=== PATIENT | male | born 1940 | race Caucasian/White ===

== ENCOUNTER 2024-11-17 09:44 | Emergency (ER) | payer MEDICARE, SELFPAY ==
[2024-11-17 09:48] VITALS: BP 159/69
[2024-11-17 11:32] VITALS: BMI 27.4
[2024-11-17 11:37] VITALS: BP 129/69
[2024-11-17 11:45] LABS: Hematocrit 43.1 % (39.0-52.0); Hemoglobin 13.6 g/dL (13.0-18.0); Mean Corp Hgb Conc. 31.6 g/dL (33.0-37.0); Mean Corpuscular Volume 97.7 fL (80.0-94.0); Nucleated Red Blood Cells % 0 % (-); Platelet Count 289 10^3/uL (130-400); Red Cell Dist. Width 18.0 % (11.5-14.5)
[2024-11-17 12:00] VITALS: BP 137/52
[2024-11-17 12:02] LABS: ALT (SGPT) 46 U/L (0-50); AST (SGOT) 40 U/L (17-59); Albumin 4.0 g/dl (3.5-5.0); Alkaline Phosphatase 97 U/L (38-126); Blood Urea Nitrogen 27 mg/dl (9-20); Calcium 9.3 mg/dl (8.4-10.2); Carbon Dioxide 30 mmol/L (22-30); Chloride 107 mmol/L (98-107); Estimated Creatinine Clearance 68 ml/min; Glucose 99 mg/dl (70-99); Lipase 50 U/L (23-300); Potassium 4.7 mmol/L (3.5-5.1); Sodium 139 mmol/L (135-145); Total Protein 6.6 g/dl (6.3-8.2); eGFR > 60.00
[2024-11-17] MEDS: DILAUDID 0.25 MG IV (12:06)
[2024-11-17] MEDS: BENADRYL 50 MG IV (12:07)
[2024-11-17] MEDS: SOLU-CORTEF 200 MG IV (12:08)
--- NOTE | 2024-11-17 12:12 | ED.GENMED ---
History of Present Illness
General
Chief Complaint: Abdominal Symptoms
Source: patient
Exam Limitations: none
Time Seen by Provider: 11/17/24 11:10
Nursing documentation reviewed up to this point in time: agreed with
History of Present Illness
History of Present Illness:
see MDM
Past History
Past History
ED Past Medical History: GERD, HTN, Other (AF) and Other (gastroparesis)
ED Past Surgical History: Cholecystectomy
Social History
Tobacco: Non-smoker
Review of Systems
Review of Systems
Allergies reviewed?: Yes
All Other Systems: Not applicable
Phy Exam
Physical Exam
Physical Exam:
See MDM
Course
Orders/Labs/Results
Orders:
Orders
11/17/24 11:31
CBC/With Diff [Complete Blood Count/With Diff] Urgent
11/17/24 11:32
CMP [Comprehensive Metabolic Panel] Urgent
Lipase Urgent
11/17/24 11:55
CT Abd/Pel (IV only)-[facility] only Urgent
Comment:
Reason For Exam: R sided abd pain x 1 year; gastroparesis
11/17/24 11:56
Diphenhydramine [Benadryl] 50 mg IV NOW STA
HYDROmorphone [Dilaudid] 0.25 mg IV NOW STA
Hydrocortisone Sod Succinate [Solu-Cortef] 200 mg IV NOW STA
11/17/24 12:05
Lactic Acid Urgent
11/17/24 14:49
0.9% Sodium Chloride 500 ml [Nss] 500 ml IV BOLUS
11/17/24 15:49
Urinalysis Reflex To Culture Urgent
Date Specimen was Collected: 11/17/24
Time Specimen was Collected: 15:48
Urine Microscopic Reflex Cult Urgent
Abnormal Lab Results
11/17/24 11/17/24 11/17/24
11:31 11:32 15:49
RBC 4.41 L 10^6/uL
(4.70-6.10)
MCV 97.7 H fL
(80.0-94.0)
MCHC 31.6 L g/dL
(33.0-37.0)
RDW 18.0 H %
(11.5-14.5)
MPV 11.4 H fL
(7.4-10.4)
Abs Immat Gran (auto) 0.1 H 10^3/uL
(0-0.05)
Absolute Lymphs (auto) 1.0 L 10^3/uL
(1.2-3.4)
Immature Gran % 1.4 H %
(0-0.5)
Lymphocytes % 15.7 L %
(20.5-51.1)
BUN 27 H mg/dl
(9-20)
Total Bilirubin 1.4 H mg/dl
(0.2-1.3)
Ur Occult Blood Reflex 1+ A
(Negative)
Urine RBC 3-6 A /HPF
(0-2)
Urine Bacteria (Reflex) Few A
(Negative)
11/17/24 11:31
11/17/24 11:32
Vital Signs
Initial and Last Documented VS:
Initial Vital Signs
Temp Pulse Resp BP
37.0 C 56 16 159/69
11/17/24 09:48 11/17/24 09:48 11/17/24 09:48 11/17/24 09:48
Last Documented Vital Signs
Temp Pulse Resp BP Pulse Ox
37.0 C 76 17 138/98 93
11/17/24 09:48 11/17/24 14:45 11/17/24 14:45 11/17/24 14:39 11/17/24 14:45
MDM/Problems Addressed
Differential Diagnosis Includes:
see MDM
MDM/Problems Addressed:
Note:
CHIEF COMPLAINT(S)
Abdominal pain and nausea.
HISTORY OF PRESENT ILLNESS
The patient is an 84-year-old male with a history of abdominal discomfort persisting for over 1 year, significantly affecting his daily activities. The patient reports a diagnosis of gastroparesis approximately seven weeks ago, confirmed by a
nuclear motility study which showed a residual of 35% at four hours, compared to the expected 10%. pt tried a medication for about a month and then had to stop it, and had been on inhaled medication.
unfortunately, The symptoms have worsened over the past week, with severe pain predominantly on the right side, described as an 'almost muscular pain in the belly.' The pain is associated with nausea and occasional dry heaving. He experiences relief
with warm fluids and reports eating minimally, mainly crackers and banana, as larger meals exacerbate his condition. The pain tends to be more intense later in the day.
The patient has been taking Tegaserod, initially with some improvement, but symptoms returned after a few days. Currently, he is using a similar medication as an inhaler, which he feels is ineffective. There is also a concern about potential
ischemia, suggested by an systems auditor, but was initially dismissed by his primary product development actuary without further testing. An MRI was previously suggested, with an appointment set for December, but the patient feels the urgency for evaluation
due to the severity of recent symptoms.
ADDITIONAL HISTORY OBTAINED FROM SOURCES OTHER THAN THE PATIENT
During this visit, the patients primary product development actuary communicated through text that they did not find signs consistent with ischemia and felt it was not a likely cause of the patient�s symptoms.
SOCIAL DETERMINANTS AFFECTING HEALTH
The patient has expressed concerns about the delay in receiving comprehensive testing due to structured appointment scheduling, leading to an increased burden from his persistent symptoms.
REVIEW OF SYSTEMS
- Gastrointestinal: Abdominal pain, nausea, dry heaving.
- General: Reports feeling nauseous upon waking.
- Eating patterns: Minimal intake, worsening symptoms later in the day.
PHYSICAL EXAM
- Nursing notes reviewed and vital signs reviewed.
GENERAL: Alert , in no apparent distress
EYE: pupils equal and reactive
NECK: Supple
ENT: o/p clr, mmm.
CARDIAC: Regular rate and rhythm .
LUNGS: Clear breath sounds bilaterally, no acute respiratory distress, no wheezes/rales/rhonchi
ABDOMEN: Soft, minimal if any tenderness to R abdomen, no r/g, no cvat, normal bowel sounds
NEUROLOGICAL: Alert and oriented, no focal neuro deficits
SKIN: Warm and dry, skin intact.
MUSCULOSKELETAL: No edema, well perfused.
PSYCH: Normal and appropriate interaction.
PROBLEM LIST
- Acute: Abdominal pain, nausea, potential bowel ischemia.
- Chronic: Gastroparesis.
PLAN
- Perform a Computed Tomography (CT) scan of the abdomen to evaluate for signs of bowel ischemia or obstruction.
- Obtain laboratory tests to rule out or identify any electrolyte imbalances or other abnormalities.
- Administer intravenous pain relief with a small dose of medication to manage the severe pain.
- Discuss with the patient the limited availability of certain imaging studies in the emergency setting and reinforce the plan for outpatient follow-up.
DIFFERENTIAL DIAGNOSIS
The Differential Diagnosis includes, in no particular order and is not limited to:
1. Gastroparesis exacerbation
2. Bowel ischemia
3. Obstructive bowel disease
4. Peptic ulcer disease
5. Chronic pancreatitis
6. Mesenteric ischemia
7. Abdominal wall pain
8. Gastrointestinal malignancy
9. Inflammatory bowel disease
10. Adhesions from previous surgeries
11/17/24 - 15:35
Patient pain was somewhat alleviated with medication, though the underlying issue remains undiagnosed. Lactic acid levels were normal, indicative of no acute ischemic event. CT scan revealed possible narrowing in the ureter, but it is not considered
a likely cause of the pain. Diverticulosis present, but not diverticulitis. Patient is dehydrated with elevated BUN. Urinalysis to be conducted to rule out kidney infection. Discussion highlighted difficulty in pinpointing cause due to chronic
nature of symptoms; gastroparesis considered a contributing factor to persistent abdominal pain. MRI and further consultations are pending. Dietary adjustments discussed, but patient continues to lose weight significantly, with a 25-pound loss
noted. No new effective management strategy for symptom control identified yet. Scheduling issues with current GI providers impacting care continuity. Recommendations for further evaluation by other specialists suggested, but logistical challenges
noted. Pain management remains complex due to motility issues, with possibility of adjusting Reglan or similar medications discussed. Discussed lifestyle moderation, including occasional minimal alcohol use. Awaiting feedback from GI on-call for
further pain management advice.
i spoke with dr. camacho who felt pt was in need of outpatient consultation before giving suggestions for pain control for gastroparesis;
pt agreed
microscopic hematuria no infection
d/c home
*Pulse Oximetry
Oxygen Mode of Delivery: Room air
Patient hypoxic: no (96)
*Critical Care Note
Total Time (30-74mins, 75-104mins- exclusive of procedures): Not Applicable
ED Attending Note
-
Portions of this chart may have been created with voice recognition software.� Occasional wrong word or��sound alike� substitutions may have occurred due to the inherent limitations of voice recognition software.
Discharge Plan
Departure
Patient Disposition: Home (Routine Discharge)
Date of Disposition: 11/17/24
Time of Disposition: 16:38
Patient with high blood pressure during this ER visit?: No
Condition: Fair
Covid-19: Not Applicable
Discharge Problem:
Abdominal pain
Instructions: Abdominal Pain
Referrals:
Jim Camacho MD [Active, Gastroenterology] - Follow up in 5-7 days
Mac Mohr DO [Family Provider, Family Practice]
Activity Restrictions/Additional Instructions:
Your pain could be from your chronic gastroparesis. Unfortunately it can be hard to treat. You should call your GI office and try to move up your appointment. Your CAT scan showed no significant causes for concern however you could have a mild
narrowing of your ureter on the right side. This also could be over read and a normal finding. You could consider following up with the urologist but with normal kidney function there is unlikely for any interventions at this time. You had no
sign of infection. Continue the workup for your gastroparesis and also for ruling out SMA syndrome.
Return for bloody stool, fever, worsening pain, persistent vomiting or any concern
you had some blood in your urine
please have this rechecked in a few weeks to be sure it is negative
Interventions
Interventions:
*Risk Screen - Suicide Last Done: 11/17/24 09:48
*General Assessment Last Done: 11/17/24 09:48
XM-Kfbcxy-Adcaiuxxox Assessment Last Done: 11/17/24 12:14
Discharge Date and Time
Print Language: BENGALI
[2024-11-17 13:00] VITALS: BP 135/77
[2024-11-17 13:03] VITALS: BP 139/55
[2024-11-17 14:39] VITALS: BP 138/98
[2024-11-17] MEDS: NSS 500 IV (15:09)
[2024-11-17 16:34] LABS: Urine Character Clear (Clear)
[2024-11-17 17:05] LABS: Urine Squamous Cell 0-2 /LPF (Few); Urine White Cell 0-2 /HPF (0-5)
== END 2024-11-17 17:20 | disposition home or self-care (01) ==
LOC: EMR 09:44
PROVIDERS: Physician Assistant; EMERGENCY PHYSICIAN Emergency Medicine; FAMILY PHYSICIAN Family Medicine
DX: R10.9 Unspecified abdominal pain (principal); K21.9 Gastro-esophageal reflux disease without esophagitis; I10 Essential (primary) hypertension; I25.10 Atherosclerotic heart disease of native coronary artery without angina pectoris; K31.84 Gastroparesis; Z90.49 Acquired absence of other specified parts of digestive tract
CPT/HCPCS: 99284; 96374; 96375; 96361; 74177; 80053; 81003; 81015; 83605; 83690; 85025; Q9967